=== PATIENT | male | born 1985 | race Caucasian/White ===

== ENCOUNTER 2022-09-30 16:27 | Emergency (ER) | payer OTHER ==
[2022-09-30 17:28] VITALS: BP 98/64; PULSE 73; RESP 18; TEMP 98.1; BMI 22.4
[2022-09-30] MEDS ORDERED: KETOROLAC TROMETHAMINE 30 MG/1 ML VIAL IM ONE (17:43)
[2022-09-30] MEDS ORDERED: KETOROLAC TROMETHAMINE 30 MG/1 ML VIAL ONE (17:45)
== END 2022-09-30 18:46 | disposition home or self-care (01) ==
LOC: JER 16:27 → JERFT 16:27
PROC: 3E023GC Introduction of Other Therapeutic Substance into Muscle, Percutaneous Approach (ICD-10-PCS; principal; 2022-09-30)
DX: M54.31 Sciatica, right side (principal)
CPT/HCPCS: 96372; 99284-25

== ENCOUNTER 2023-10-21 20:26 | Emergency (ER) | payer OTHER ==
[2023-10-21 20:38] VITALS: BP 108/68; PULSE 78; RESP 18; TEMP 98; BMI 23.0
[2023-10-21] MEDS ORDERED: IBUPROFEN 400 MG TABLET (FP) PO ONE (23:20)
[2023-10-21] MEDS ORDERED: IBUPROFEN 600 MG TABLET (FP) PO ONE (23:33)
== END 2023-10-21 23:35 | disposition home or self-care (01) ==
LOC: JER 20:26 → JERFT 20:26 → JER 23:35
DX: R50.9 Fever, unspecified (principal); R51.9 Headache, unspecified; M79.10 Myalgia, unspecified site; R05.9 Cough, unspecified; Z20.822 Contact with and (suspected) exposure to COVID-19
CPT/HCPCS: 0241U-QW; 87651; 99283-25